=== PATIENT | male | born 1975 | race Caucasian/White ===

== ENCOUNTER 2017-08-08 21:21 | Emergency (ER) | payer OTHER ==
[2017-08-08 21:45] VITALS: BP 130/100
== END 2017-08-08 22:08 | disposition other institution (70) ==
LOC: ED 21:21
DX: Z53.21 Procedure and treatment not carried out due to patient leaving prior to being seen by health care provider (principal)

== ENCOUNTER 2017-08-08 22:23 | Emergency (ER) | payer OTHER ==
[2017-08-08 23:14] VITALS: BP 112/67
== END 2017-08-08 23:14 | disposition home or self-care (01) ==
LOC: ED 22:23
DX: Z02.89 Encounter for other administrative examinations (principal)